=== PATIENT | male | born 1985 | race Caucasian/White ===

== ENCOUNTER 2018-10-22 00:56 | Inpatient (IN) | payer OTHER ==
[2018-10-22] MEDS ORDERED: DIAZEPAM 5 MG/ML 1 ML SYR IVP ONE (01:18)
[2018-10-22 01:55] LABS: PLATELET COUNT 259 10^3/uL (150-400)
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
[2018-10-22] MEDS ORDERED: ONDANSETRON DISINTEGRATING 4 MG TAB PO PRN (02:12)
[2018-10-22] MEDS ORDERED: ACETAMINOPHEN 325 MG TAB PO PRN (02:12)
[2018-10-22] MEDS ORDERED: ONDANSETRON 4 MG/2 ML VIAL IVP PRN (02:12)
[2018-10-22] MEDS ORDERED: HYDROmorphONE/DILAUDID 1 MG/ML INJ ONE (02:13)
[2018-10-22] MEDS ORDERED: HYDROmorphONE/DILAUDID 2 MG/ML INJ IVP ONE (02:15)
[2018-10-22] MEDS ORDERED: NS 1,000 ML IV ONE (02:15)
[2018-10-22] MEDS: HYDROmorphONE/DILAUDID 1 MG/ML INJ IVP PRN ×3 (02:24→20:42)
[2018-10-22] MEDS ORDERED: D5W 1/2 NS 1,000 ML IV SCH (02:30)
[2018-10-22] MEDS: oxyCODONE IR 5 MG TAB PO PRN ×4 (03:04→11:24)
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
[2018-10-22] MEDS ORDERED: LORazepam 2 MG/ML INJ IVP ONE (03:26)
[2018-10-22] MEDS ORDERED: TEMAZEPAM 15 MG CAP PO ONE (03:28)
[2018-10-22 05:59] LABS: PLATELET COUNT 246 10^3/uL (150-400)
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
--- NOTE | 2018-10-22 11:27 | PDMN ---
Medical Necessity Medical necessity: Pt meets INPT criteria per MD as of 10/22/18 and [facility] (est. LOS >2 MN for eval/tx of R radius/ulna fracture requiring surgical fixation, on M1 hold, psych eval pending).
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
[2018-10-22] MEDS ORDERED: OLANZapine DISINTEGR 5 MG TAB PO PRN (14:19)
[2018-10-22] MEDS ORDERED: LORazepam 0.5 MG TAB PO PRN (14:19)
--- NOTE | 2018-10-22 15:11 | ASMTCMCOM ---
CM Note CM Note Notes: Patient is going for arm surgery this afternoon. He will need some time to recover and then TLC eval when medically clear. TLC eval to determine if patient needs inpatient behavioral health care. D/C plan TBD. CM will follow. Date Signed: 10/22/2018 03:10 PM Electronically Signed By:Vilma Mohan LCSW
[2018-10-22] MEDS ORDERED: BUPIVACAINE/EPI 0.5% 30 ML SDV ONE (15:34)
[2018-10-22] MEDS ORDERED: MIDAZOLAM 2 MG/2 ML VIAL IVP ONE (16:56)
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
[2018-10-22] MEDS ORDERED: MIDAZOLAM 2 MG/2 ML VIAL ONE (17:12)
[2018-10-22] MEDS ORDERED: fentaNYL 100 MCG/2 ML INJ ONE ×2 (17:18→18:23)
[2018-10-22] MEDS ORDERED: PROPOFOL 200 MG/20 ML VIAL ONE (17:18)
[2018-10-22] MEDS ORDERED: ROCURONIUM 50 MG/5 ML VIAL ONE (17:22)
[2018-10-22] MEDS ORDERED: LIDOCAINE 2% 5 ML SDV ONE (17:59)
[2018-10-22] MEDS ORDERED: DEXAMETHASONE 4 MG/ML VIAL ONE (17:59)
[2018-10-22] MEDS ORDERED: ONDANSETRON 4 MG/2 ML VIAL ONE (18:00)
[2018-10-22] MEDS ORDERED: DIAZEPAM 5 MG/ML 1 ML SYR IVP PRN (18:20)
[2018-10-22] MEDS ORDERED: PROMETHAZINE HCL 25 MG/ML INJ IVP PRN (18:20)
[2018-10-22] MEDS ORDERED: HYDROmorphONE/DILAUDID 2 MG/ML INJ IVP PRN (18:20)
[2018-10-22] MEDS ORDERED: METOCLOPRAMIDE 10 MG/2 ML VIAL IVP PRN (18:20)
[2018-10-22] MEDS ORDERED: fentaNYL 100 MCG/2 ML INJ IVP PRN (18:20)
[2018-10-22] MEDS ORDERED: oxyCODONE IR 5 MG TAB PO PRN (18:20)
[2018-10-22] MEDS ORDERED: ACETAMINOPHEN 500 MG TAB PO PRN (18:20)
[2018-10-22] MEDS ORDERED: PHENYLEPHRINE HCL 100 MCG/ML SYR IVP PRN (18:20)
[2018-10-22] MEDS ORDERED: LABETALOL HCL 5 MG/ML 20 ML MDV IVP PRN (18:20)
[2018-10-22] MEDS ORDERED: LR 500 ML IV PRN (18:20)
[2018-10-22] MEDS ORDERED: NALOXONE HCL 0.4 MG/ML INJ IVP PRN (18:20)
[2018-10-22] MEDS ORDERED: MEPERIDINE 25 MG/0.5 ML AMP IVP PRN (18:20)
[2018-10-22] MEDS ORDERED: ALBUTEROL 3 ML DEYVIAL IH PRN (18:20)
[2018-10-23] MEDS ORDERED: OLANZapine 5 MG TAB PO SCH
[2018-10-23] MEDS ORDERED: LORazepam 1 MG TAB PO SCH
[2018-10-23] MEDS: oxyCODONE IR 5 MG TAB PO PRN ×2 (00:13→18:27)
[2018-10-23] MEDS: HYDROmorphONE/DILAUDID 1 MG/ML INJ IVP PRN (02:20)
[2018-10-23 03:57] VITALS: BP 134/76
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
--- NOTE | 2018-10-23 11:16 | POSTANESTH ---
Post Anesthetic Evaluation Cardiovascular Status: Normal, Stable Respiratory Status: Normal, Stable Level of Consciousness/Mental Status: Can Participate in Eval Pain Control: Adequate, Prn Tx Ordered Nausea/Vomiting Control: Adequate, Prn Tx Ordered Complications Possibly Related to Anesthesia: None Noted
--- NOTE | 2018-10-23 15:51 | GPROG ---
I saw and evaluated this patient on my afternoon rounds today. Overall, he is doing quite well. He reports marked improvement in pain. He is able to range the elbow, wrist and fingers okay. He is gr ossly neurologically intact. ASSESSMENT AND PLAN: Moving forward, I am pleased with the patient's progress. At this point, he ca n be discharged at any point. Obviously, he has some limitations which should be addressed. I would like to see him back in 2 weeks' time to remove the stitches. I talked to him at length regarding w hat he can and cannot do in the meantime. He is not to do any sort of lifting whatsoever with that r ight hand. However, I told him he is able to text, use a keyboard or write with that hand, which I t hink is fine. All questions answered. At this point, no further orthopedic intervention is going to be required. We can leave the splint on for the next couple of weeks and we will take the patient's sutures out in 2 weeks' time in my office. All these questions were addressed with the patient. /[id number]/MODL
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
--- NOTE | 2018-10-23 19:40 | ASMTTCLDSP ---
TLC Discharge Disposition Disposition: Answers: Discharge Disposition Notes: Notes: In consultation with [facility] ED physician, Kallie Montejo MD, and on-call psychiatrist, Graham Rea MD, both concurred that pt does not appear to meet 27-65 criteria requiring psychiatric hospitalization as pt does not appear to be an imminent risk of harm to self/others/gravely disabled due to a mental illness condition. IF M1 VACATED: Dr. Wong provided telephone order read back vacating M1 hold at 18:00hrs. Discharge Concerns/Recommendations: Notes: PT will be DC'd into sisters care. Pt has been given some bridge psyc medications to get to Thursday. Pt's sister is power of business attorney and a list of out pt resources for pimary care providers that take medicare and psychiatrists and MH [employer]'s have been given to PT's sister. Was patient given the Answers: Not applicable Inpatient Behavioral Health Prohibited Belongings List while in the ED? Date and time M1 hold 10/23/2018 06:00 PM vacated (time format is hh:mm): Type of Hold: Answers: M1/72-hour Hold Date Signed: 10/23/2018 07:40 PM Electronically Signed By:Kush Chatterjee
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
== END 2018-10-23 19:45 | disposition home or self-care (01) | DRG 512 ==
LOC: EDUNIT# → EEVIPCON 02:12 → F2N 02:49
PROVIDERS: ADMIT Student in an Organized Health Care Education/Training Program; ATTEND Student in an Organized Health Care Education/Training Program
PROC: 0PSH04Z Reposition Right Radius with Internal Fixation Device, Open Approach (ICD-10-PCS; principal; 2018-10-22 17:30)
PROC: 0PSK04Z Reposition Right Ulna with Internal Fixation Device, Open Approach (ICD-10-PCS; principal; 2018-10-22 17:30)
DX: S52.301A Unspecified fracture of shaft of right radius, initial encounter for closed fracture (principal); S52.201A Unspecified fracture of shaft of right ulna, initial encounter for closed fracture; Y92.410 Unspecified street and highway as the place of occurrence of the external cause; V03.10XA Pedestrian on foot injured in collision with car, pick-up truck or van in traffic accident, initial encounter; F31.9 Bipolar disorder, unspecified; F43.10 Post-traumatic stress disorder, unspecified; F90.9 Attention-deficit hyperactivity disorder, unspecified type; F17.210 Nicotine dependence, cigarettes, uncomplicated
CPT/HCPCS: 80305; 96374; C1713; G0480; J1100; J1170; J2250; J2405; J2704; J3010; J3360